=== PATIENT | female | born 1955 | race Hispanic/Latino ===

== ENCOUNTER 2017-11-07 06:13 | Inpatient (IN) | payer MEDICARE ==
[2017-11-07] MEDS ORDERED: NACL 0.9% 1000 ML 1,000 ML IV ONE (06:47)
--- NOTE | 2017-11-07 07:08 | XRay Report ---
FINAL REPORT EXAM: XR CHEST 1V AP HISTORY: Dyspnea TECHNIQUE: A portable view of the chest was obtained. FINDINGS: The heart size and vascularity appear normal. There are no localized infiltrates or effusions. The skeletal structures do not show any acute changes. IMPRESSION: No acute cardiopulmonary process.
[2017-11-07] MEDS ORDERED: DUONEB *Not for PRN Use IH ONE (07:11)
--- NOTE | 2017-11-07 08:13 | Emergency Department Report ---
ED General Adult HPI - General Chief complaint: Dyspnea/Respdistress Stated complaint: SIVA Time Seen by Provider: 11/07/17 06:45 Source: patient, EMS Mode of arrival: Stretcher Limitations: No Limitations - History of Present Illness Initial comments: 62-year-old female who states that she ran out of her home nebulizer medication. She states that she has been taking her medicine for diabetes. However she admits that she is very poor and checking her sugar. She has not done so recently. She does admit to dyspnea around cigarette smoke. She states that she is not on prednisone now. She states she's been on prednisone before and it did not affect her sugar adversely to her knowledge. She denies any significant productive cough recently. She said no fever or chills. She denies chest pain pressure or tightness. She is otherwise asymptomatic. -: Gradual, hour(s) Consistency: constant (wheezing but somewhat improved) Improves with: none Worsens with: none Associated Symptoms: denies other symptoms Treatments Prior to Arrival: none - Related Data Allergies Allergy/AdvReac Type Severity Reaction Status Date / Time ampicillin Allergy Unknown Verified 11/07/17 06:26 lisinopril Allergy Unknown Verified 11/07/17 06:26 ED Review of Systems ROS: Stated complaint: SIVA Other details as noted in HPI Constitutional: denies: chills, fever Eyes: denies: eye pain, eye discharge, vision change ENT: denies: ear pain, throat pain Respiratory: wheezing. denies: cough Cardiovascular: denies: chest pain, palpitations Endocrine: no symptoms reported Gastrointestinal: denies: abdominal pain, nausea, diarrhea Genitourinary: denies: urgency, dysuria, discharge Musculoskeletal: denies: back pain, joint swelling, arthralgia Skin: denies: rash, lesions Neurological: denies: headache, weakness, paresthesias Psychiatric: denies: anxiety, depression Hematological/Lymphatic: denies: easy bleeding, easy bruising ED Past Medical Hx - Past Medical History Previous Medical History?: Yes Hx Diabetes: Yes Hx Asthma: Yes Hx COPD: Yes Additional medical history: high cholestrol - Surgical History Past Surgical History?: No - Social History Smoking Status: Never Smoker Substance Use Type: None ED Physical Exam - General Limitations: No Limitations General appearance: alert, in no apparent distress - Head Head exam: Present: atraumatic, normocephalic - Eye Eye exam: Present: normal appearance, PERRL, EOMI. Absent: scleral icterus - ENT ENT exam: Present: mucous membranes moist - Neck Neck exam: Present: normal inspection - Respiratory Respiratory exam: Present: wheezes. Absent: normal lung sounds bilaterally, respiratory distress, accessory muscle use, decreased breath sounds, prolonged expiratory - Cardiovascular Cardiovascular Exam: Present: regular rate, normal rhythm. Absent: systolic murmur, diastolic murmur, rubs, gallop - GI/Abdominal GI/Abdominal exam: Present: soft, normal bowel sounds. Absent: distended, tenderness, guarding, rebound, rigid - Extremities Exam Extremities exam: Present: normal inspection, normal capillary refill. Absent: tenderness, pedal edema, joint swelling, calf tenderness - Back Exam Back exam: Present: normal inspection - Neurological Exam Neurological exam: Present: alert, oriented X3, CN II-XII intact. Absent: motor sensory deficit - Psychiatric Psychiatric exam: Present: normal affect, normal mood - Skin Skin exam: Present: warm, dry, intact, normal color. Absent: rash ED Course Vital Signs 11/07/17 11/07/17 11/07/17 06:19 07:18 08:18 Temperature 98.0 F Pulse Rate 122 H 111 H Pulse Rate [ 75 Anterior] Respiratory 22 18 Rate Respiratory 20 Rate [Anterior] Blood Pressure 144/79 Blood Pressure 137/95 [Left] O2 Sat by Pulse 81 L 94 Oximetry - Reevaluation(s) Reevaluation #1: Patient was given 40 of by mouth potassium. An arterial blood gas showed a PCO2 of 75. This was remarkably well compensated. Now with standing, we will place the patient on BiPAP with a low gradient for now and keep her on low flow O2. She is admitted by Dr. Rubio to the hospitalist service for further care and evaluation 11/07/17 10:11 ED Medical Decision Making - Lab Data Result diagrams: 11/07/17 07:31 11/07/17 07:31 Laboratory Results - last 24 hr 11/07/17 11/07/17 11/07/17 07:31 07:31 07:31 WBC 6.4 RBC 3.97 Hgb 11.7 Hct 35.7 MCV 90 MCH 29 MCHC 33 RDW 13.8 Plt Count 214 Lymph % (Auto) 30.4 [place] % (Auto) 11.4 H Eos % (Auto) 1.8 Baso % (Auto) 1.2 Lymph # 1.9 [place] # 0.7 Eos # 0.1 Baso # 0.1 Seg Neutrophils % 55.2 Seg Neutrophils # 3.5 PT 12.9 INR 0.93 APTT 28.5 D-Dimer 220.53 VBG pH Sodium 136 L Potassium 2.9 L* Chloride 83.5 L Carbon Dioxide 41 H* Anion Gap 14 BUN 9 Creatinine 0.3 L Estimated GFR > 60 BUN/Creatinine Ratio 30 Glucose 125 H Ketones Quantitative Lactic Acid Calcium 9.2 Magnesium 1.30 L Total Creatine Kinase 108 CK-MB (CK-2) 3.2 CK-MB (CK-2) Rel Index 2.9 Troponin T < 0.010 TSH Urine Color Urine Turbidity Urine pH Ur Specific [place] Urine Protein Urine Glucose (UA) Urine Ketones Urine Blood Urine Nitrite Urine Bilirubin Urine Urobilinogen Ur Leukocyte Esterase Urine WBC (Auto) Urine RBC (Auto) U Epithel Cells (Auto) Urine Opiates Screen Urine Methadone Screen Ur Barbiturates Screen Ur Phencyclidine Scrn Ur Amphetamines Screen U Benzodiazepines Scrn Urine Cocaine Screen U Marijuana (THC) Screen Drugs of Abuse Note 11/07/17 11/07/17 11/07/17 07:31 07:31 07:31 WBC RBC Hgb Hct MCV MCH MCHC RDW Plt Count Lymph % (Auto) [place] % (Auto) Eos % (Auto) Baso % (Auto) Lymph # [place] # Eos # Baso # Seg Neutrophils % Seg Neutrophils # PT INR APTT D-Dimer VBG pH 7.453 H Sodium Potassium Chloride Carbon Dioxide Anion Gap BUN Creatinine Estimated GFR BUN/Creatinine Ratio Glucose Ketones Quantitative Negative Lactic Acid 1.00 Calcium Magnesium Total Creatine Kinase CK-MB (CK-2) CK-MB (CK-2) Rel Index Troponin T TSH Urine Color Urine Turbidity Urine pH Ur Specific [place] Urine Protein Urine Glucose (UA) Urine Ketones Urine Blood Urine Nitrite Urine Bilirubin Urine Urobilinogen Ur Leukocyte Esterase Urine WBC (Auto) Urine RBC (Auto) U Epithel Cells (Auto) Urine Opiates Screen Urine Methadone Screen Ur Barbiturates Screen Ur Phencyclidine Scrn Ur Amphetamines Screen U Benzodiazepines Scrn Urine Cocaine Screen U Marijuana (THC) Screen Drugs of Abuse Note 11/07/17 11/07/17 11/07/17 07:31 08:04 08:32 WBC RBC Hgb Hct MCV MCH MCHC RDW Plt Count Lymph % (Auto) [place] % (Auto) Eos % (Auto) Baso % (Auto) Lymph # [place] # Eos # Baso # Seg Neutrophils % Seg Neutrophils # PT INR APTT D-Dimer VBG pH Sodium Potassium Chloride Carbon Dioxide Anion Gap BUN Creatinine Estimated GFR BUN/Creatinine Ratio Glucose Ketones Quantitative Lactic Acid Calcium Magnesium Total Creatine Kinase CK-MB (CK-2) CK-MB (CK-2) Rel Index Troponin T TSH 2.330 Urine Color Straw Urine Turbidity Clear Urine pH 7.0 Ur Specific [place] 1.003 Urine Protein <15 mg/dl Urine Glucose (UA) Neg Urine Ketones Neg Urine Blood Neg Urine Nitrite Neg Urine Bilirubin Neg Urine Urobilinogen < 2.0 Ur Leukocyte Esterase Neg Urine WBC (Auto) 1.0 Urine RBC (Auto) < 1.0 U Epithel Cells (Auto) 2.0 Urine Opiates Screen Presumptive negative Urine Methadone Screen Presumptive negative Ur Barbiturates Screen Presumptive negative Ur Phencyclidine Scrn Presumptive negative Ur Amphetamines Screen Presumptive negative U Benzodiazepines Scrn Presumptive negative Urine Cocaine Screen Presumptive negative U Marijuana (THC) Screen Presumptive negative Drugs of Abuse Note Disclamer - EKG Data -: EKG Interpreted by Dc EKG shows normal: sinus rhythm, axis, intervals, QRS complexes, ST-T waves Rate: normal - EKG Data Interpretation: normal EKG - Radiology Data Radiology results: report reviewed (no acute process) Critical care attestation.: If time is entered above; I have spent that time in minutes in the direct care of this critically ill patient, excluding procedure time. ED Disposition Clinical Impression: COPD exacerbation, Hypercapnic respiratory failure, chronic, Hypokalemia Disposition: 09 OP ADMIT IP TO THIS HOSP Is pt being admited?: Yes Does the pt Need Aspirin: Yes Condition: Stable Instructions: Chronic Obstructive Pulmonary Disease (ED) Referrals: PRIMARY CARE, [Primary Care Provider] - 3-5 Days Time of Disposition: 10:14
[2017-11-07 08:15] LABS: Creatine Kinase MB 3.2 ng/mL (0.0-4.0)
[2017-11-07 08:17] LABS: BUN/Creatinine Ratio 30; Blood Urea Nitrogen 9 mg/dL (7-17); Calcium 9.2 mg/dL (8.4-10.2); Hemolysis Index 8
[2017-11-07 08:26] LABS: Basophils # (Auto) 0.1 K/mm3 (0.0-0.1); Basophils % (Auto) 1.2 % (0.0-1.8); Eosinophils # (Auto) 0.1 K/mm3 (0.0-0.4); Eosinophils % (Auto) 1.8 % (0.0-4.3); Hematocrit 35.7 % (30.3-42.9); Hemoglobin 11.7 gm/dl (10.1-14.3); Lymphocytes # (Auto) 1.9 K/mm3 (1.2-5.4); Lymphocytes % (Auto) 30.4 % (13.4-35.0); Mean Corpuscular HGB Conc 33 % (30-34); Mean Corpuscular Hemoglobin 29 pg (28-32); Mean Corpuscular Volume 90 fl (79-97); Monocytes # (Auto) 0.7 K/mm3 (0.0-0.8); Monocytes % (Auto) 11.4 % (0.0-7.3); Platelet Count 214 K/mm3 (140-440); Red Blood Count 3.97 M/mm3 (3.65-5.03); Red Cell Distribution Width 13.8 % (13.2-15.2)
[2017-11-07 08:35] LABS: INR 0.93 (0.87-1.13); Partial Thromboplastin Time 28.5 Sec. (24.2-36.6)
[2017-11-07 08:59] LABS: Bilirubin,Urine NEG (Negative); Blood,Urine NEG (Negative); Color,Urine Straw (Yellow); Protein,Urine <15 mg/dL mg/dL (Negative); RBC,Urine < 1.0 /HPF (0.0-6.0); Urobilinogen,Urine < 2.0 mg/dL (<2.0)
[2017-11-07 09:08] LABS: Amphetamine Screen,Urine PRESUMPTIVE NEGATIVE; Benzodiazepines Screen,Urine PRESUMPTIVE NEGATIVE; Cannabinoid Screen,Urine PRESUMPTIVE NEGATIVE; Cocaine Screen,Urine PRESUMPTIVE NEGATIVE; Methadone Screen,Urine PRESUMPTIVE NEGATIVE; Opiate Screen,Urine PRESUMPTIVE NEGATIVE
[2017-11-07] MEDS ORDERED: K-DUR PO ONE ×2 (09:50→14:00)
[2017-11-07] MEDS ORDERED: BABY ASPIRIN PO ONE (10:14)
[2017-11-07] MEDS ORDERED: MAGNESIUM SULFATE 4GM/100ML 4 GM/100 ML BAG IV ONE (11:00)
[2017-11-07] MEDS: KCL 10MEQ/100ML 10 MEQ/100 ML BAG IV SCH ×2 (11:17→23:30)
--- NOTE | 2017-11-07 11:31 | History and Physical Report ---
History of Present Illness Date of examination: 11/07/17 Date of admission: 11/07/17 Chief complaint: Shortness of breath, cough History of present illness: Patient is 62-year-old with history of hypertension, diabetes, COPD. She presented one week of shortness of breath and cough. She has been having shortness of breath on and off for 1 week but worse over the past 2 days. Shortness of breath is worse on exertion. She also complains of cough with yellow sputum. She denies any fever. No chest pain, no nausea, no vomiting. She is visiting the [place] area form [place], [place]. 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 Patient is on home oxygen at 3l/ min. Symptoms became worse, therefore came to Emergency Department for evaluation. She is diagnosed with acute on chronic respiratory failure with hypoxia and hypercapnia due to COPD exacerbation, hypokalemia, hypomagnesemia. BiPAP has been started and she will be admitted for further management. Past History Past Medical History: COPD, diabetes, hypertension, hyperlipidemia, other ( Chronic resp failure , on home Oxygen at 3l/min) Past Surgical History: Social history: single, lives with family, smoking (Smokes 1 stick cigarette daily), full code, other (Alcohol 3 times a week). denies: prescription drug abuse, IV drug use Family history: CAD, diabetes, hypertension Medications and Allergies Allergies Allergy/AdvReac Type Severity Reaction Status Date / Time ampicillin Allergy Unknown Verified 11/07/17 06:26 lisinopril Allergy Unknown Verified 11/07/17 06:26 Active Meds: Active Medications Sodium Chloride (Nacl 0.9% 1000 Ml) 1,000 mls @ 125 mls/hr IV ONCE ONE Stop: 11/07/17 14:46 Last Admin: 11/07/17 11:17 Dose: 125 mls/hr Magnesium Sulfate (Magnesium Sulfate 4gm/100ml) 4 gm in 100 mls @ 25 mls/hr IV ONCE.ED ONE Stop: 11/07/17 14:59 Potassium Chloride (Kcl 10meq/100ml) 10 meq in 100 mls @ 100 mls/hr IV Q1H [place] Stop: 11/07/17 12:59 Last Admin: 11/07/17 11:17 Dose: 100 mls/hr Potassium Chloride (K-Dur) 40 meq PO ONCE ONE Stop: 11/07/17 14:01 Review of Systems All systems: negative (No fever,no headache,no chest pain. All other systems reviewed and are negative) Exam - Physical Exam Narrative exam: Constitutional: Not in acute distress, obese, on BIPAP HEENT: Atraumatic, normocephalic Neck: supple, no lymphadenopathy, Lungs: Bilateral rhonchi, wheezing, CVS: S1-S2 regular, no murmurs, rubs or gallop, Abdomen: soft, non-tender, non distended,bowel sounds are normal, Musculoskeletal: No edema, clubbing, or cyanosis NETWORK AND THREAT SUPPORT SPECIALIST: awake, alert,oriented x3, no focal neurological signs, Psych: normal mood - Constitutional Vitals: Temp Pulse Resp BP Pulse Ox 98.0 F 94 H 20 137/94 97 11/07/17 06:19 11/07/17 11:19 11/07/17 11:19 11/07/17 11:19 11/07/17 11:19 Results - Labs CBC & Chem 7: 11/08/17 05:37 11/08/17 05:37 Labs: Abnormal lab results 11/07/17 11/07/17 11/07/17 Range/Units 07:31 07:31 07:31 [place] % (Auto) 11.4 H (0.0-7.3) % POC ABG pH (7.35-7.45) POC ABG pCO2 (35-45) VBG pH 7.453 H (7.320-7.420) Sodium 136 L (137-145) mmol/L Potassium 2.9 L* (3.6-5.0) mmol/L Chloride 83.5 L (98-107) mmol/L Carbon Dioxide 41 H* (22-30) mmol/L Creatinine 0.3 L (0.7-1.2) mg/dL Glucose 125 H (65-100) mg/dL Magnesium 1.30 L (1.7-2.3) mg/dL 11/07/17 Range/Units 10:08 [place] % (Auto) (0.0-7.3) % POC ABG pH 7.465 H (7.35-7.45) POC ABG pCO2 72.0 H (35-45) VBG pH (7.320-7.420) Sodium (137-145) mmol/L Potassium (3.6-5.0) mmol/L Chloride (98-107) mmol/L Carbon Dioxide (22-30) mmol/L Creatinine (0.7-1.2) mg/dL Glucose (65-100) mg/dL Magnesium (1.7-2.3) mg/dL Assessment and Plan Acute on chronic resp failure with hypoxia and hypercapnea due to COPD exacerbation. Admit to Tele BIPAP started supplemental Oxygen solumedrol iv, Duoneb She is normally on home oxygen at 3 L/m OR COPD excaerbation Solu-medrol, Duonep Hypokalemia. Replace and recheck Hypomagnesemia. Replace with Mg 4g iv, recheck in am DM type 2. Check fingerstick glucose every 6 hours and at bedtime Hypertension. Monitor BP Hyperlipidemia DVT prophylaxis with Heparin subcut. FULL CODE STATUS
[2017-11-07] MEDS ORDERED: PROVENTIL IH PRN (11:36)
[2017-11-07] MEDS ORDERED: ZOFRAN IV PRN (11:37)
[2017-11-07] MEDS ORDERED: TYLENOL PO PRN (11:37)
[2017-11-07] MEDS ORDERED: SODIUM CHLORIDE FLUSH SYRINGE 10 ML IV PRN (11:37)
[2017-11-07] MEDS: DUONEB *Not for PRN Use IH SCH ×2 (16:27→20:15)
[2017-11-07 20:27] LABS: BUN/Creatinine Ratio 16; Blood Urea Nitrogen 8 mg/dL (7-17); Calcium 8.9 mg/dL (8.4-10.2); Hemolysis Index 6
[2017-11-07] MEDS: PEPCID PO SCH ×2 (20:50→21:11)
[2017-11-07] MEDS: NORCO 5/325 PO PRN (21:10)
[2017-11-07] MEDS: SODIUM CHLORIDE FLUSH SYRINGE 10 ML IV SCH (21:11)
[2017-11-07] MEDS: HumuLIN R SUB-Q SCH (23:31)
[2017-11-08] MEDS: DUONEB *Not for PRN Use IH SCH ×4 (01:45→19:53)
[2017-11-08 07:06] LABS: Basophils % (Auto) 0.4 % (0.0-1.8); Hematocrit 36.3 % (30.3-42.9); Hemoglobin 11.6 gm/dl (10.1-14.3); Lymphocytes # (Auto) 0.5 K/mm3 (1.2-5.4); Lymphocytes % (Auto) 11.1 % (13.4-35.0); Mean Corpuscular HGB Conc 32 % (30-34); Mean Corpuscular Hemoglobin 30 pg (28-32); Mean Corpuscular Volume 92 fl (79-97); Monocytes # (Auto) 0.1 K/mm3 (0.0-0.8); Monocytes % (Auto) 1.4 % (0.0-7.3); Platelet Count 227 K/mm3 (140-440); Red Blood Count 3.92 M/mm3 (3.65-5.03); Red Cell Distribution Width 13.9 % (13.2-15.2)
[2017-11-08 07:10] LABS: BUN/Creatinine Ratio 25; Blood Urea Nitrogen 10 mg/dL (7-17); Calcium 8.7 mg/dL (8.4-10.2); Hemolysis Index 1
[2017-11-08] MEDS: PEPCID PO SCH ×2 (09:15→22:16)
[2017-11-08] MEDS: HumuLIN R SUB-Q SCH ×4 (09:16→22:17)
--- NOTE | 2017-11-08 12:32 | Progress Note ---
Assessment and Plan Assessment and plan: Acute on chronic resp failure with hypoxia and hypercapnea due to COPD exacerbation. Admitted to Telemetry BIPAP started in ED yesterday, now discontinued Continuesupplemental Oxygen solumedrol iv, Duoneb She is normally on home oxygen at 3 L/m [place]. Pulm consulted COPD excaerbation Solu-medrol, Duoneb Hypokalemia. Now resolved Replace and recheck Hypomagnesemia. Replace with Mg 4g iv, recheck in am DM type 2. Check fingerstick glucose every 6 hours and at bedtime Hypertension. Monitor BP Hyperlipidemia DVT prophylaxis with Heparin subcut. FULL CODE STATUS History Interval history: Feels better, less shortness of breath Hospitalist Physical - Physical exam Narrative exam: Constitutional: Not in acute distress, obese, on Oxygen by [place] HEENT: Atraumatic, normocephalic Neck: supple, no lymphadenopathy, Lungs: Bilateral rhonchi,improved CVS: S1-S2 regular, no murmurs, rubs or gallop, Abdomen: soft, non-tender, non distended,bowel sounds are normal, Musculoskeletal: No edema, clubbing, or cyanosis LEHR LOADER: awake, alert,oriented x3, no focal neurological signs, Psych: normal mood - Constitutional Vitals: Temp Pulse Resp BP Pulse Ox 97.9 F 112 H 20 153/81 97 11/08/17 08:19 11/08/17 11:22 11/08/17 10:00 11/08/17 08:19 11/08/17 08:25 Results - Labs CBC & Chem 7: 11/08/17 05:37 11/08/17 05:37 Labs: Laboratory Last Values WBC 4.4 K/mm3 (4.5-11.0) L 11/08/17 05:37 RBC 3.92 M/mm3 (3.65-5.03) 11/08/17 05:37 Hgb 11.6 gm/dl (10.1-14.3) 11/08/17 05:37 Hct 36.3 % (30.3-42.9) 11/08/17 05:37 MCV 92 fl (79-97) 11/08/17 05:37 MCH 30 pg (28-32) 11/08/17 05:37 MCHC 32 % (30-34) 11/08/17 05:37 RDW 13.9 % (13.2-15.2) 11/08/17 05:37 Plt Count 227 K/mm3 (140-440) 11/08/17 05:37 Lymph % (Auto) 11.1 % (13.4-35.0) L 11/08/17 05:37 [place] % (Auto) 1.4 % (0.0-7.3) 11/08/17 05:37 Eos % (Auto) 0.0 % (0.0-4.3) 11/08/17 05:37 Baso % (Auto) 0.4 % (0.0-1.8) 11/08/17 05:37 Lymph # 0.5 K/mm3 (1.2-5.4) L 11/08/17 05:37 [place] # 0.1 K/mm3 (0.0-0.8) 11/08/17 05:37 Eos # 0.0 K/mm3 (0.0-0.4) 11/08/17 05:37 Baso # 0.0 K/mm3 (0.0-0.1) 11/08/17 05:37 Seg Neutrophils % 87.1 % (40.0-70.0) H 11/08/17 05:37 Seg Neutrophils # 3.9 K/mm3 (1.8-7.7) 11/08/17 05:37 PT 12.9 Sec. (12.2-14.9) 11/07/17 07:31 INR 0.93 (0.87-1.13) 11/07/17 07:31 APTT 28.5 Sec. (24.2-36.6) 11/07/17 07:31 D-Dimer 220.53 ng/mlDDU (0-234) 11/07/17 07:31 POC ABG pH 7.466 (7.35-7.45) H 11/08/17 10:52 POC ABG pCO2 59.1 (35-45) H 11/08/17 10:52 POC ABG pO2 46 (80-105) L 11/08/17 10:52 POC ABG HCO3 42.6 11/08/17 10:52 POC ABG Total CO2 44 11/08/17 10:52 POC ABG O2 Sat 82 11/08/17 10:52 POC ABG Base Excess 19 11/08/17 10:52 VBG pH 7.453 (7.320-7.420) H 11/07/17 07:31 FiO2 32 % 11/08/17 10:52 Sodium 139 mmol/L (137-145) 11/08/17 05:37 Potassium 4.4 mmol/L (3.6-5.0) 11/08/17 05:37 Chloride 89.8 mmol/L (98-107) L 11/08/17 05:37 Carbon Dioxide 41 mmol/L (22-30) H* 11/08/17 05:37 Anion Gap 13 mmol/L 11/08/17 05:37 BUN 10 mg/dL (7-17) 11/08/17 05:37 Creatinine 0.4 mg/dL (0.7-1.2) L 11/08/17 05:37 Estimated GFR > 60 ml/min 11/08/17 05:37 BUN/Creatinine Ratio 25 % 11/08/17 05:37 Glucose 215 mg/dL (65-100) H 11/08/17 05:37 POC Glucose 252 (70-105) H 11/08/17 06:41 Hemoglobin A1c 6.5 % (4-6) H 11/07/17 11:41 Ketones Quantitative Negative (Negative) 11/07/17 07:31 Lactic Acid 1.00 mmol/L (0.7-2.0) 11/07/17 07:31 Calcium 8.7 mg/dL (8.4-10.2) 11/08/17 05:37 Magnesium 2.10 mg/dL (1.7-2.3) 11/08/17 05:37 Total Creatine Kinase 108 units/L (30-135) 11/07/17 07:31 CK-MB (CK-2) 3.2 ng/mL (0.0-4.0) 11/07/17 07:31 CK-MB (CK-2) Rel Index 2.9 (0-4) 11/07/17 07:31 Troponin T < 0.010 ng/mL (0.00-0.029) 11/07/17 07:31 TSH 2.330 mlU/mL (0.270-4.200) 11/07/17 07:31 Urine Color Straw (Yellow) 11/07/17 08:04 Urine Turbidity Clear (Clear) 11/07/17 08:04 Urine pH 7.0 (5.0-7.0) 11/07/17 08:04 Ur Specific [place] 1.003 (1.003-1.030) 11/07/17 08:04 Urine Protein <15 mg/dl mg/dL (Negative) 11/07/17 08:04 Urine Glucose (UA) Neg mg/dL (Negative) 11/07/17 08:04 Urine Ketones Neg mg/dL (Negative) 11/07/17 08:04 Urine Blood Neg (Negative) 11/07/17 08:04 Urine Nitrite Neg (Negative) 11/07/17 08:04 Urine Bilirubin Neg (Negative) 11/07/17 08:04 Urine Urobilinogen < 2.0 mg/dL (<2.0) 11/07/17 08:04 Ur Leukocyte Esterase Neg (Negative) 11/07/17 08:04 Urine WBC (Auto) 1.0 /HPF (0.0-6.0) 11/07/17 08:04 Urine RBC (Auto) < 1.0 /HPF (0.0-6.0) 11/07/17 08:04 U Epithel Cells (Auto) 2.0 /HPF (0-13.0) 11/07/17 08:04 Urine Opiates Screen Presumptive negative 11/07/17 08:32 Urine Methadone Screen Presumptive negative 11/07/17 08:32 Ur Barbiturates Screen Presumptive negative 11/07/17 08:32 Ur Phencyclidine Scrn Presumptive negative 11/07/17 08:32 Ur Amphetamines Screen Presumptive negative 11/07/17 08:32 U Benzodiazepines Scrn Presumptive negative 11/07/17 08:32 Urine Cocaine Screen Presumptive negative 11/07/17 08:32 U Marijuana (THC) Screen Presumptive negative 11/07/17 08:32 Drugs of Abuse Note Disclamer 11/07/17 08:32
[2017-11-08] MEDS: HEPARIN SUB-Q SCH ×2 (13:05→22:16)
[2017-11-08] MEDS: SODIUM CHLORIDE FLUSH SYRINGE 10 ML IV SCH ×2 (13:07→22:17)
--- NOTE | 2017-11-08 13:30 | Consultation ---
History of Present Illness Consult date: 11/08/17 Reason for consult: dyspnea, COPD History of present illness: Called to evaluate case of his 62-year-old -[place] female, chronic smoker who is admitted with increased shortness of breath and COPD exacerbation. The patient reports that she is visiting from [place] when she started with shortness of breath, chest tightness and wheezing for the past 3 days. Also increase expectoration on sometimes with yellow-greenish sputum. No fever or chills. She denies hemoptysis or sick contacts. She started back smoking 4 years ago. Follows with her primary physician in [place], currently on oxygen 3 L/m as an outpatient and using albuterol/Anoro inhaler. Denies lower extremity edema, chest pain. Does report this after exertion. Presented to the ED after symptoms continue to worsen. My chest x-ray review shows rapid to be some blunting versus early infiltrate on the left costophrenic angle, see report Past History Past Medical History: COPD, diabetes, hypertension, hyperlipidemia, other ( Chronic resp failure , on home Oxygen at 3l/min) Past Surgical History: Social history: single, lives with family, smoking (Smokes 1 stick cigarette daily), full code, other (Alcohol 3 times a week). denies: prescription drug abuse, IV drug use Family history: CAD, diabetes, hypertension Medications and Allergies Allergies Allergy/AdvReac Type Severity Reaction Status Date / Time ampicillin Allergy Unknown Verified 11/07/17 06:26 lisinopril Allergy Unknown Verified 11/07/17 06:26 Active Meds: Active Medications Acetaminophen (Tylenol) 650 mg PO Q4H PRN PRN Reason: Pain MILD(1-3)/Fever >100.5/ESTRADA Acetaminophen/Hydrocodone Bitart ([place] 5/325) 1 each PO Q6H PRN PRN Reason: Pain, Moderate (4-6) Last Admin: 11/07/17 21:10 Dose: 1 each Albuterol (Proventil) 2.5 mg IH Q4HRT PRN PRN Reason: Shortness Of Breath Albuterol/Ipratropium (Duoneb *Not For Prn Use*) 1 ampul IH Q6HRT [facility] Last Admin: 11/08/17 08:22 Dose: 1 ampul Famotidine (Pepcid) 20 mg PO BID [facility] Last Admin: 11/08/17 09:15 Dose: 20 mg Heparin Sodium (Porcine) (Heparin) 5,000 unit SUB-Q Q8HR [facility] Last Admin: 11/08/17 13:05 Dose: 5,000 unit Insulin Human Isoph/Insulin Regular (Humulin 70/30) 8 unit SUB-Q BIDDIAB [facility] Insulin Human Regular (Humulin R) 0 units SUB-Q ACHS [facility]; Protocol Last Admin: 11/08/17 12:58 Dose: 1 units Methylprednisolone Sodium Succinate (Solu-Medrol) 80 mg IV Q8HR [facility] Last Admin: 11/08/17 13:08 Dose: 80 mg Ondansetron HCl (Zofran) 4 mg IV Q8H PRN PRN Reason: Nausea And Vomiting Sodium Chloride (Sodium Chloride Flush Syringe 10 Ml) 10 ml IV BID [facility] Last Admin: 11/08/17 13:07 Dose: 10 ml Sodium Chloride (Sodium Chloride Flush Syringe 10 Ml) 10 ml IV PRN PRN PRN Reason: LINE FLUSH Review of Systems Constitutional: fatigue, no fever, no chills, no sweats Ears, nose, mouth and throat: no nasal congestion, no nasal discharge, no sinus pressure Cardiovascular: orthopnea, no chest pain, no palpitations, no edema, no syncope , no lightheadedness Respiratory: cough with sputum, excessive sputum, shortness of breath, dyspnea on exertion, congestion, wheezing, no hemoptysis Physical Examination Vital signs: Vital Signs Temp Pulse Resp BP Pulse Ox 98.0 F 122 H 22 144/79 81 L 11/07/17 06:19 11/07/17 06:19 11/07/17 06:19 11/07/17 06:19 11/07/17 06:19 General appearance: no acute distress, alert, other (obese) Eyes: non-icteric Neck: supple, no JVD Ascultation: Bilateral: wheezes, rales (lower lung mcdonough.) Percussion: Bilateral: not dull Cardiovascular: regular rate and rhythm Gastrointestinal: normoactive bowel sounds, non-distended Extremities: no cyanosis, no edema, pink and warm Musculoskeletal: no deformities, ROM normal normal mental status, non-focal exam Results - Laboratory Findings CBC and BMP: 11/08/17 05:37 11/08/17 05:37 ABG POC ABG pH 7.466 (7.35-7.45) H 11/08/17 10:52 POC ABG pCO2 59.1 (35-45) H 11/08/17 10:52 POC ABG pO2 46 (80-105) L 11/08/17 10:52 POC ABG HCO3 42.6 11/08/17 10:52 POC ABG Total CO2 44 11/08/17 10:52 POC ABG O2 Sat 82 11/08/17 10:52 PT/INR, D-dimer PT 12.9 Sec. (12.2-14.9) 11/07/17 07:31 INR 0.93 (0.87-1.13) 11/07/17 07:31 D-Dimer 220.53 ng/mlDDU (0-234) 11/07/17 07:31 Abnormal lab findings: Abnormal Labs 11/07/17 11/07/17 11/07/17 07:31 07:31 07:31 WBC Lymph % (Auto) [place] % (Auto) 11.4 H Lymph # Seg Neutrophils % POC ABG pH POC ABG pCO2 POC ABG pO2 VBG pH 7.453 H Sodium 136 L Potassium 2.9 L* Chloride 83.5 L Carbon Dioxide 41 H* Creatinine 0.3 L Glucose 125 H POC Glucose Hemoglobin A1c Magnesium 1.30 L 11/07/17 11/07/17 11/07/17 10:08 11:41 17:20 WBC Lymph % (Auto) [place] % (Auto) Lymph # Seg Neutrophils % POC ABG pH 7.465 H POC ABG pCO2 72.0 H POC ABG pO2 VBG pH Sodium Potassium Chloride Carbon Dioxide Creatinine Glucose POC Glucose 137 H Hemoglobin A1c 6.5 H Magnesium 11/07/17 11/07/17 11/08/17 19:57 21:27 05:37 WBC 4.4 L Lymph % (Auto) 11.1 L [place] % (Auto) Lymph # 0.5 L Seg Neutrophils % 87.1 H POC ABG pH POC ABG pCO2 POC ABG pO2 VBG pH Sodium Potassium Chloride 90.8 L Carbon Dioxide 42 H* Creatinine 0.5 L D Glucose 271 H POC Glucose 247 H Hemoglobin A1c Magnesium 11/08/17 11/08/17 11/08/17 05:37 06:41 10:42 WBC Lymph % (Auto) [place] % (Auto) Lymph # Seg Neutrophils % POC ABG pH 7.453 H POC ABG pCO2 61.5 H POC ABG pO2 41 L VBG pH Sodium Potassium Chloride 89.8 L Carbon Dioxide 41 H* Creatinine 0.4 L Glucose 215 H POC Glucose 252 H Hemoglobin A1c Magnesium 11/08/17 10:52 WBC Lymph % (Auto) [place] % (Auto) Lymph # Seg Neutrophils % POC ABG pH 7.466 H POC ABG pCO2 59.1 H POC ABG pO2 46 L VBG pH Sodium Potassium Chloride Carbon Dioxide Creatinine Glucose POC Glucose Hemoglobin A1c Magnesium - Diagnostic Findings Chest x-ray: report reviewed, image reviewed Assessment and Plan Acute on chronic respiratory failure exacerbation episode COPD exacerbation Acute exacerbation of her bronchitis versus question of LLL pneumonia. Obesity Tobacco abuse Recommendations: Albuterol 2.5 milligram nebulizations every 4-6 hours with or without ipratropium Solu-Medrol 40-60 mg IV every 6-8 hours Oxygen support via nasal cannula or mask to maintain oximetry over 92% Smoking cessation discussed including use of nicotine replacement treatment DVT prophylaxis Continue oxygen support as needed keep oximetry over 90% Ambulate, out of bed as tolerated Consider Levaquin (monitor glycemic control) or azithromycin Findings discussed with patient in detail. All questions answered. Thanks
[2017-11-08] MEDS: LEVAQUIN 750MG/150ML 750 MG/150 ML BAG IV SCH (15:05)
[2017-11-08] MEDS: NORCO 5/325 PO PRN (22:20)
[2017-11-09] MEDS: DUONEB *Not for PRN Use IH SCH ×4 (04:06→20:52)
[2017-11-09] MEDS: HEPARIN SUB-Q SCH ×3 (06:14→22:01)
[2017-11-09 07:14] LABS: Hematocrit 34.7 % (30.3-42.9); Hemoglobin 11.1 gm/dl (10.1-14.3); Mean Corpuscular HGB Conc 32 % (30-34); Mean Corpuscular Hemoglobin 30 pg (28-32); Mean Corpuscular Volume 92 fl (79-97); Platelet Count 230 K/mm3 (140-440); Red Blood Count 3.76 M/mm3 (3.65-5.03); Red Cell Distribution Width 13.8 % (13.2-15.2)
[2017-11-09 07:40] LABS: BUN/Creatinine Ratio 28; Blood Urea Nitrogen 14 mg/dL (7-17); Calcium 8.9 mg/dL (8.4-10.2); Hemolysis Index 53
[2017-11-09] MEDS: HumuLIN R SUB-Q SCH ×4 (08:38→22:06)
[2017-11-09] MEDS: LEVAQUIN 750MG/150ML 750 MG/150 ML BAG IV SCH (11:40)
[2017-11-09] MEDS: PEPCID PO SCH ×2 (11:40→22:02)
[2017-11-09] MEDS ORDERED: KIONEX PO ONE (13:51)
[2017-11-09] MEDS ORDERED: SODIUM BICARBONATE IV ONE ×2 (13:52→14:00)
--- NOTE | 2017-11-09 13:53 | Progress Note ---
Assessment and Plan /Acute on chronic resp failure with hypoxia and hypercapnea due to COPD exacerbation. Admitted to Telemetry BIPAP started in ED, now weaned off Continue supplemental Oxygen, solumedrol iv, Duoneb She is normally on home oxygen at 3 L/m [place]. Pulm folowing /COPD excaerbation Solu-medrol, Duoneb /Hypokalemia. Now resolved /Hyperkalemia, kayexalate x1 dose today /Hypomagnesemia. Replaced with Mg 4g iv /DM type 2. Check fingerstick glucose every 6 hours and at bedtime /Hypertension. Monitor BP, add med as needed /Hyperlipidemia, will add statin DVT prophylaxis with Heparin subcut. FULL CODE STATUS Brief history: Patient is 62-year-old with history of hypertension, diabetes, COPD on 3L home O2 presented with one week of shortness of breath and cough. CXR: Patient is 62-year-old with history of hypertension, diabetes, COPD. 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,oriented x3, no focal neurological signs, Psych: normal mood Subjective Date of service: 11/09/17 Interval history: Pt seen and examined need O2 supply to go home/[place] k level 5.7 today Objective - Constitutional Vitals: Vital Signs - 12hr 11/09/17 11/09/17 11/09/17 04:08 04:55 05:25 Temperature 98.2 F Pulse Rate 88 Pulse Rate [ Anterior] Pulse Rate [ 102 H 104 H Bilateral Throughout] Respiratory 20 Rate Respiratory Rate [Anterior] Respiratory 20 18 Rate [Bilateral Throughout] Blood Pressure 147/85 O2 Sat by Pulse 93 Oximetry 11/09/17 11/09/17 11/09/17 09:56 09:57 10:00 Temperature Pulse Rate 82 Pulse Rate [ 78 Anterior] Pulse Rate [ 81 Bilateral Throughout] Respiratory 26 H Rate Respiratory 18 Rate [Anterior] Respiratory 18 Rate [Bilateral Throughout] Blood Pressure O2 Sat by Pulse 96 96 Oximetry 11/09/17 10:23 Temperature Pulse Rate Pulse Rate [ Anterior] Pulse Rate [ Bilateral Throughout] Respiratory Rate Respiratory Rate [Anterior] Respiratory Rate [Bilateral Throughout] Blood Pressure O2 Sat by Pulse 94 Oximetry - Labs CBC & Chem 7: 11/09/17 06:19 11/10/17 05:20 Labs: Abnormal lab results 11/08/17 11/08/17 11/08/17 Range/Units 12:51 16:15 22:19 Potassium (3.6-5.0) mmol/L Chloride (98-107) mmol/L Carbon Dioxide (22-30) mmol/L Creatinine (0.7-1.2) mg/dL Glucose (65-100) mg/dL POC Glucose 158 H 247 H 128 H (70-105) 11/09/17 11/09/17 11/09/17 Range/Units 06:19 06:51 12:38 Potassium 5.7 H D (3.6-5.0) mmol/L Chloride 93.1 L (98-107) mmol/L Carbon Dioxide 38 H (22-30) mmol/L Creatinine 0.5 L (0.7-1.2) mg/dL Glucose 198 H (65-100) mg/dL POC Glucose 174 H 158 H (70-105)
--- NOTE | 2017-11-09 14:34 | Progress Note ---
Assessment and Plan Acute on chronic respiratory failure exacerbation episode COPD exacerbation Acute exacerbation of her bronchitis versus question of LLL pneumonia. Obesity Tobacco abuse Recommendations: Continue breathing treatments. could be transferred to by mouth prednisone in the morning She can continue on discharge on Anoro or Trelegy upon discharge Subjective Date of service: 11/09/17 Principal diagnosis: COPD exacerbation Interval history: Reports that she is doing better today. Less cough and wheezing. No chest pain Objective Vital Signs - 12hr 11/09/17 11/09/17 11/09/17 04:08 04:55 05:25 Temperature 98.2 F Pulse Rate 88 Pulse Rate [ Anterior] Pulse Rate [ 102 H 104 H Bilateral Throughout] Respiratory 20 Rate Respiratory Rate [Anterior] Respiratory 20 18 Rate [Bilateral Throughout] Blood Pressure 147/85 Blood Pressure [Left] O2 Sat by Pulse 93 Oximetry 11/09/17 11/09/17 11/09/17 08:53 09:56 09:57 Temperature 98.0 F Pulse Rate 87 Pulse Rate [ 78 Anterior] Pulse Rate [ 81 Bilateral Throughout] Respiratory 16 Rate Respiratory 18 Rate [Anterior] Respiratory 18 Rate [Bilateral Throughout] Blood Pressure 146/84 Blood Pressure [Left] O2 Sat by Pulse 96 96 Oximetry 11/09/17 11/09/17 11/09/17 10:00 10:23 12:00 Temperature 98.2 F Pulse Rate 82 83 Pulse Rate [ Anterior] Pulse Rate [ Bilateral Throughout] Respiratory 26 H 18 Rate Respiratory Rate [Anterior] Respiratory Rate [Bilateral Throughout] Blood Pressure Blood Pressure 156/95 [Left] O2 Sat by Pulse 96 94 98 Oximetry 11/09/17 12:32 Temperature Pulse Rate 85 Pulse Rate [ Anterior] Pulse Rate [ Bilateral Throughout] Respiratory 18 Rate Respiratory Rate [Anterior] Respiratory Rate [Bilateral Throughout] Blood Pressure 156/95 Blood Pressure [Left] O2 Sat by Pulse 98 Oximetry Constitutional: no acute distress, alert, other (obese) Eyes: non-icteric Neck: supple, no JVD Ascultation: Bilateral: wheezes (mild) Percussion: Bilateral: not dull Cardiovascular: regular rate and rhythm Gastrointestinal: normoactive bowel sounds, non-distended Extremities: no cyanosis, no edema, pink and warm Neurologic: normal mental status, non-focal exam, pupils equal and round, CN II- XII normal, motor strength normal and CBC and BMP: 11/09/17 06:19 11/09/17 06:19 ABG, PT/INR, D-dimer: ABG POC ABG pH 7.466 (7.35-7.45) H 11/08/17 10:52 POC ABG pCO2 59.1 (35-45) H 11/08/17 10:52 POC ABG pO2 46 (80-105) L 11/08/17 10:52 POC ABG HCO3 42.6 11/08/17 10:52 POC ABG Total CO2 44 11/08/17 10:52 POC ABG O2 Sat 82 11/08/17 10:52 PT/INR, D-dimer PT 12.9 Sec. (12.2-14.9) 11/07/17 07:31 INR 0.93 (0.87-1.13) 11/07/17 07:31 D-Dimer 220.53 ng/mlDDU (0-234) 11/07/17 07:31 Abnormal lab findings: Abnormal Labs 11/07/17 11/07/17 11/07/17 07:31 07:31 07:31 WBC Lymph % (Auto) [place] % (Auto) 11.4 H Lymph # Seg Neutrophils % POC ABG pH POC ABG pCO2 POC ABG pO2 VBG pH 7.453 H Sodium 136 L Potassium 2.9 L* Chloride 83.5 L Carbon Dioxide 41 H* Creatinine 0.3 L Glucose 125 H POC Glucose Hemoglobin A1c Magnesium 1.30 L 11/07/17 11/07/17 11/07/17 10:08 11:41 17:20 WBC Lymph % (Auto) [place] % (Auto) Lymph # Seg Neutrophils % POC ABG pH 7.465 H POC ABG pCO2 72.0 H POC ABG pO2 VBG pH Sodium Potassium Chloride Carbon Dioxide Creatinine Glucose POC Glucose 137 H Hemoglobin A1c 6.5 H Magnesium 11/07/17 11/07/17 11/08/17 19:57 21:27 05:37 WBC 4.4 L Lymph % (Auto) 11.1 L [place] % (Auto) Lymph # 0.5 L Seg Neutrophils % 87.1 H POC ABG pH POC ABG pCO2 POC ABG pO2 VBG pH Sodium Potassium Chloride 90.8 L Carbon Dioxide 42 H* Creatinine 0.5 L D Glucose 271 H POC Glucose 247 H Hemoglobin A1c Magnesium 11/08/17 11/08/17 11/08/17 05:37 06:41 10:42 WBC Lymph % (Auto) [place] % (Auto) Lymph # Seg Neutrophils % POC ABG pH 7.453 H POC ABG pCO2 61.5 H POC ABG pO2 41 L VBG pH Sodium Potassium Chloride 89.8 L Carbon Dioxide 41 H* Creatinine 0.4 L Glucose 215 H POC Glucose 252 H Hemoglobin A1c Magnesium 11/08/17 11/08/17 11/08/17 10:52 12:51 16:15 WBC Lymph % (Auto) [place] % (Auto) Lymph # Seg Neutrophils % POC ABG pH 7.466 H POC ABG pCO2 59.1 H POC ABG pO2 46 L VBG pH Sodium Potassium Chloride Carbon Dioxide Creatinine Glucose POC Glucose 158 H 247 H Hemoglobin A1c Magnesium 11/08/17 11/09/17 11/09/17 22:19 06:19 06:51 WBC Lymph % (Auto) [place] % (Auto) Lymph # Seg Neutrophils % POC ABG pH POC ABG pCO2 POC ABG pO2 VBG pH Sodium Potassium 5.7 H D Chloride 93.1 L Carbon Dioxide 38 H Creatinine 0.5 L Glucose 198 H POC Glucose 128 H 174 H Hemoglobin A1c Magnesium 11/09/17 12:38 WBC Lymph % (Auto) [place] % (Auto) Lymph # Seg Neutrophils % POC ABG pH POC ABG pCO2 POC ABG pO2 VBG pH Sodium Potassium Chloride Carbon Dioxide Creatinine Glucose POC Glucose 158 H Hemoglobin A1c Magnesium
[2017-11-09] MEDS: SODIUM CHLORIDE FLUSH SYRINGE 10 ML IV SCH ×2 (22:01→22:02)
[2017-11-09] MEDS: NORCO 5/325 PO PRN (22:02)
[2017-11-10] MEDS: DUONEB *Not for PRN Use IH SCH ×3 (03:23→14:41)
[2017-11-10] MEDS: HEPARIN SUB-Q SCH ×2 (05:43→13:12)
[2017-11-10 06:09] LABS: BUN/Creatinine Ratio 38; Blood Urea Nitrogen 15 mg/dL (7-17); Calcium 8.8 mg/dL (8.4-10.2); Hemolysis Index 7
[2017-11-10] MEDS: HumuLIN R SUB-Q SCH ×3 (07:30→17:33)
[2017-11-10] MEDS ORDERED: LEVAQUIN PO SCH (10:00)
[2017-11-10] MEDS: PEPCID PO SCH (10:00)
[2017-11-10] MEDS: SODIUM CHLORIDE FLUSH SYRINGE 10 ML IV SCH (10:00)
--- NOTE | 2017-11-10 11:47 | Progress Note ---
Assessment and Plan Acute on chronic respiratory failure exacerbation episode COPD exacerbation Acute exacerbation of her bronchitis versus question of LLL pneumonia. Obesity Tobacco abuse Hypertension Recommendations: Continue breathing treatments. could be transferred to by mouth prednisone in the morning She can continue on discharge on Anoro or Trelegy upon discharge Recheck blood pressure treatment before discharge Ambulate patient, check oxygen needs She continues to improve she could be discharged at hospitalist discretion, after this Subjective Date of service: 11/10/17 Principal diagnosis: COPD exacerbation Interval history: States breathing is better. Minimal wheezing. No other respiratory complaints Objective Vital Signs - 12hr 11/10/17 11/10/17 11/10/17 00:46 01:22 03:23 Temperature 98.9 F Pulse Rate 78 80 Pulse Rate [ Anterior] Pulse Rate [ 79 Bilateral Throughout] Pulse Rate [ From Monitor] Respiratory 18 Rate Respiratory Rate [Anterior] Respiratory 20 Rate [Bilateral Throughout] Blood Pressure 165/92 Blood Pressure 165/92 [Left] O2 Sat by Pulse 95 95 Oximetry 11/10/17 11/10/17 11/10/17 03:31 05:44 07:51 Temperature 97.6 F Pulse Rate 64 74 Pulse Rate [ Anterior] Pulse Rate [ 82 Bilateral Throughout] Pulse Rate [ From Monitor] Respiratory 18 Rate Respiratory Rate [Anterior] Respiratory 20 Rate [Bilateral Throughout] Blood Pressure 145/85 Blood Pressure 158/68 [Left] O2 Sat by Pulse 99 97 Oximetry 11/10/17 11/10/17 11/10/17 08:23 08:33 09:37 Temperature 98.6 F Pulse Rate 85 Pulse Rate [ 73 78 Anterior] Pulse Rate [ 73 78 Bilateral Throughout] Pulse Rate [ From Monitor] Respiratory 20 Rate Respiratory 20 20 Rate [Anterior] Respiratory 20 20 Rate [Bilateral Throughout] Blood Pressure Blood Pressure 145/85 [Left] O2 Sat by Pulse Oximetry 11/10/17 11/10/17 10:00 11:31 Temperature 98.6 F Pulse Rate 102 H Pulse Rate [ Anterior] Pulse Rate [ Bilateral Throughout] Pulse Rate [ 85 From Monitor] Respiratory 20 16 Rate Respiratory Rate [Anterior] Respiratory Rate [Bilateral Throughout] Blood Pressure 157/106 Blood Pressure [Left] O2 Sat by Pulse 94 95 Oximetry Constitutional: no acute distress, alert, other (obese) Eyes: non-icteric Neck: supple, no JVD Ascultation: Bilateral: clear, diminished breath sounds, wheezes (sporadic) Percussion: Bilateral: not dull Cardiovascular: regular rate and rhythm Gastrointestinal: normoactive bowel sounds, non-distended Extremities: no cyanosis, no edema, pink and warm Neurologic: normal mental status, non-focal exam, pupils equal and round, CN II- XII normal, motor strength normal and CBC and BMP: 11/09/17 06:19 11/10/17 05:20 ABG, PT/INR, D-dimer: ABG POC ABG pH 7.466 (7.35-7.45) H 11/08/17 10:52 POC ABG pCO2 59.1 (35-45) H 11/08/17 10:52 POC ABG pO2 46 (80-105) L 11/08/17 10:52 POC ABG HCO3 42.6 11/08/17 10:52 POC ABG Total CO2 44 11/08/17 10:52 POC ABG O2 Sat 82 11/08/17 10:52 PT/INR, D-dimer PT 12.9 Sec. (12.2-14.9) 11/07/17 07:31 INR 0.93 (0.87-1.13) 11/07/17 07:31 D-Dimer 220.53 ng/mlDDU (0-234) 11/07/17 07:31 Abnormal lab findings: Abnormal Labs 11/07/17 11/07/17 11/07/17 07:31 07:31 07:31 WBC Lymph % (Auto) [place] % (Auto) 11.4 H Lymph # Seg Neutrophils % POC ABG pH POC ABG pCO2 POC ABG pO2 VBG pH 7.453 H Sodium 136 L Potassium 2.9 L* Chloride 83.5 L Carbon Dioxide 41 H* Creatinine 0.3 L Glucose 125 H POC Glucose Hemoglobin A1c Magnesium 1.30 L 11/07/17 11/07/17 11/07/17 10:08 11:41 17:20 WBC Lymph % (Auto) [place] % (Auto) Lymph # Seg Neutrophils % POC ABG pH 7.465 H POC ABG pCO2 72.0 H POC ABG pO2 VBG pH Sodium Potassium Chloride Carbon Dioxide Creatinine Glucose POC Glucose 137 H Hemoglobin A1c 6.5 H Magnesium 11/07/17 11/07/17 11/08/17 19:57 21:27 05:37 WBC 4.4 L Lymph % (Auto) 11.1 L [place] % (Auto) Lymph # 0.5 L Seg Neutrophils % 87.1 H POC ABG pH POC ABG pCO2 POC ABG pO2 VBG pH Sodium Potassium Chloride 90.8 L Carbon Dioxide 42 H* Creatinine 0.5 L D Glucose 271 H POC Glucose 247 H Hemoglobin A1c Magnesium 11/08/17 11/08/17 11/08/17 05:37 06:41 10:42 WBC Lymph % (Auto) [place] % (Auto) Lymph # Seg Neutrophils % POC ABG pH 7.453 H POC ABG pCO2 61.5 H POC ABG pO2 41 L VBG pH Sodium Potassium Chloride 89.8 L Carbon Dioxide 41 H* Creatinine 0.4 L Glucose 215 H POC Glucose 252 H Hemoglobin A1c Magnesium 11/08/17 11/08/17 11/08/17 10:52 12:51 16:15 WBC Lymph % (Auto) [place] % (Auto) Lymph # Seg Neutrophils % POC ABG pH 7.466 H POC ABG pCO2 59.1 H POC ABG pO2 46 L VBG pH Sodium Potassium Chloride Carbon Dioxide Creatinine Glucose POC Glucose 158 H 247 H Hemoglobin A1c Magnesium 11/08/17 11/09/17 11/09/17 22:19 06:19 06:51 WBC Lymph % (Auto) [place] % (Auto) Lymph # Seg Neutrophils % POC ABG pH POC ABG pCO2 POC ABG pO2 VBG pH Sodium Potassium 5.7 H D Chloride 93.1 L Carbon Dioxide 38 H Creatinine 0.5 L Glucose 198 H POC Glucose 128 H 174 H Hemoglobin A1c Magnesium 11/09/17 11/09/17 11/09/17 12:38 16:22 21:30 WBC Lymph % (Auto) [place] % (Auto) Lymph # Seg Neutrophils % POC ABG pH POC ABG pCO2 POC ABG pO2 VBG pH Sodium Potassium Chloride Carbon Dioxide Creatinine Glucose POC Glucose 158 H 207 H 203 H Hemoglobin A1c Magnesium 11/10/17 11/10/17 05:20 05:45 WBC Lymph % (Auto) [place] % (Auto) Lymph # Seg Neutrophils % POC ABG pH POC ABG pCO2 POC ABG pO2 VBG pH Sodium Potassium Chloride 93.9 L Carbon Dioxide 37 H Creatinine 0.4 L Glucose 208 H POC Glucose 195 H Hemoglobin A1c Magnesium
--- NOTE | 2017-11-10 16:59 | Discharge Summary ---
Providers - Providers Date of Admission: 11/07/17 10:15 Date of discharge: 11/10/17 Attending physician: ROBERT RICARDO 11/07/17 11:22 Consult to Physician [CONS] Routine Comment: Consulting Provider: ANGELICA RAMOS Physician Instructions: Reason For Exam: COPD exacerbation,hypercapneac resp failure Primary care physician: [employer] Hospitalization Condition: Stable Hospital course: Brief history: Patient is 62-year-old with history of hypertension, diabetes, COPD on 3L home O2 presented with one week of shortness of breath and cough. Discharge diagnosis and management; /Acute on chronic resp failure with hypoxia and hypercapnea due to COPD exacerbation. Admitted to Telemetry BIPAP started in ED, now weaned off Continue supplemental Oxygen, solumedrol iv, Duoneb She is normally on home oxygen at 3 L/m [place]. Pulm folowing /COPD excaerbation treated with tapering dose of Solu-medrol, Duoneb /Hypokalemia. Now resolved /Hyperkalemia, kayexalate x1 dose, resolved /Hypomagnesemia. Replaced with Mg 4g iv /DM type 2. Check fingerstick glucose every 6 hours and at bedtime on subqu insulin /Hypertension. Monitor BP, add med as needed /Hyperlipidemia, added statin DVT prophylaxis with Heparin subcut. FULL CODE STATUS CXR: Patient is 62-year-old with history of hypertension, diabetes, COPD. 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: awake, alert,oriented x3, no focal neurological signs, Psych: normal mood Disposition: DC-01 TO HOME OR SELFCARE Time spent for discharge: 34 minutes Core Measure Documentation - Palliative Care Palliative Care/ Comfort Measures: Not Applicable - Core Measures Any of the following diagnoses?: none Exam - Constitutional Vitals: Temp Pulse Resp BP Pulse Ox 98.6 F 82 20 157/106 95 11/10/17 11:31 11/10/17 14:55 11/10/17 14:55 11/10/17 11:31 11/10/17 11:31 Plan Activity: advance as tolerated Weight Bearing Status: Non-Weight Bearing Diet: diabetic Durable Medical Equipment Needed Upon Discharge: Oxygen Additional Instructions: f/u with PCP in one week at [place] Follow up with: PRIMARY CARE, [Primary Care Provider] - 3-5 Days Prescriptions: AtorvaSTATin [Lipitor] 40 mg PO QHS #30 tablet ALBUTEROL NEB's [Proventil 0.083% NEBS] 2.5 mg IH Q4HRT PRN #30 nebu PRN Reason: Shortness Of Breath amLODIPine [Norvasc] 10 mg PO QDAY #30 tablet Aspirin EC [Aspirin Enteric Coated TAB] 81 mg PO QDAY #30 tablet.dr Ascencio/Formotero 160-4.5(Nf) [Symbicort 160-4.5 (Nf)] 1 puff IH BID 30 Days inha Insulin NPH/Regular [NovoLIN 70/30] 8 unit SUB-Q BIDDIAB 30 Days units Levofloxacin [Levaquin TAB] 750 mg PO Q24HR #4 tablet predniSONE [Deltasone] 50 mg PO QDAY #5 tab
[2017-11-10] MEDS ORDERED: NORVASC PO SCH (17:00)
[2017-11-10 18:47] VITALS: BP 165/74
== END 2017-11-10 19:30 | disposition home or self-care (01) | DRG 189 ==
LOC: ED 06:13 → 4A 10:15
PROVIDERS: ADMIT Internal Medicine; ATTEND Internal Medicine
PROC: 4A033R1 Measurement of Arterial Saturation, Peripheral, Percutaneous Approach (ICD-10-PCS; principal; 2017-11-07)
PROC: 5A09357 Assistance with Respiratory Ventilation, Less than 24 Consecutive Hours, Continuous Positive Airway Pressure (ICD-10-PCS; 2017-11-07)
DX: J96.21 Acute and chronic respiratory failure with hypoxia (principal); J44.1 Chronic obstructive pulmonary disease with (acute) exacerbation; E87.6 Hypokalemia; Z88.8 Allergy status to other drugs, medicaments and biological substances; E11.9 Type 2 diabetes mellitus without complications; E78.00 Pure hypercholesterolemia, unspecified; I10 Essential (primary) hypertension; J96.22 Acute and chronic respiratory failure with hypercapnia; E83.42 Hypomagnesemia; Z83.3 Family history of diabetes mellitus; Z82.49 Family history of ischemic heart disease and other diseases of the circulatory system; F17.210 Nicotine dependence, cigarettes, uncomplicated; E66.9 Obesity, unspecified; Z68.34 Body mass index [BMI] 34.0-34.9, adult; E87.5 Hyperkalemia; E78.5 Hyperlipidemia, unspecified; Z99.81 Dependence on supplemental oxygen; Z71.6 Tobacco abuse counseling
CPT/HCPCS: 36415; 36600; 71045; 80048; 80307; 81001; 82010; 82140; 82550; 82553; 82803; 82805; 82962; 83036; 83735; 84443; 84484; 85025; 85027; 85379; 85610; 85730; 86403; 87116; 93005; 93010; 94640; 94760; 96365; 96366; J1644; J1815; J1956; J2920; J2930; J3475; J3480; J7030